=== PATIENT | female | born 1980 | race Caucasian/White ===

== ENCOUNTER 2017-03-23 16:58 | Emergency (ER) | payer OTHER ==
[2017-03-23] MEDS ORDERED: ACETAMINOPHEN TAB 500 MG TAB PO STA (17:37)
[2017-03-23] MEDS ORDERED: RX INFO: IV CONTRAST WAS GIVEN 1 EACH MISC MISCELLANE PRN (17:37)
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
--- NOTE | 2017-03-23 18:58 | XR ---
EXAMINATION TYPE: XR shoulder complete LT, XR clavicle LT DATE OF EXAM: 03/23/2017 6:53 PM CLINICAL HISTORY: pain COMPARISON: NONE TECHNIQUE: Three views of the left shoulder are obtained. 2 views of the left clavicle are also subm itted. FINDINGS: There is no acute fracture/dislocation evident. The acromioclavicular and glenohumeral rudy int spaces appear within normal limits. The visualized ribs are intact and unremarkable. IMPRESSION: 1. There is no acute fracture or dislocation. ICD 10 NO FRACTURE, INITIAL EVALUATION
--- NOTE | 2017-03-23 18:59 | XR ---
EXAMINATION TYPE: XR knee complete bilateral DATE OF EXAM: 03/23/2017 6:53 PM CLINICAL HISTORY: pain TECHNIQUE: Three views of the bilateral knees and bilateral tibia and fibula are obtained. COMPARISON: None. FINDINGS: There is no acute fracture/dislocation. The tri-compartment joint spaces appear narrowed. The overlying soft tissue appears unremarkable. IMPRESSION: There is no acute fracture or dislocation ICD 10 NO FRACTURE, INITIAL EVALUATION
[2017-03-23 19:41] VITALS: BP 118/83; PULSE 80; RESP 16; TEMP 98.5
--- NOTE | 2017-03-24 19:25 | XR ---
EXAMINATION TYPE: XR tibia fibula bilateral DATE OF EXAM: 03/23/2017 6:54 PM COMPARISON: NONE HISTORY: Pain TECHNIQUE: 2 view right tib-fib. Images presented 03/24/2017 for final interpretation. FINDINGS: No acute fractures are evident. Joint spaces are preserved. A plantar calcaneal heel spur i s present. Degenerative changes are at the knee. IMPRESSION: 1. No acute osseous abnormality.
== END 2017-03-23 19:41 | disposition home or self-care (01) ==
LOC: EC 16:58
DX: S81.819A Laceration without foreign body, unspecified lower leg, initial encounter (principal); S80.02XA Contusion of left knee, initial encounter; S80.01XA Contusion of right knee, initial encounter; S30.1XXA Contusion of abdominal wall, initial encounter; S40.019A Contusion of unspecified shoulder, initial encounter; S50.10XA Contusion of unspecified forearm, initial encounter; F17.200 Nicotine dependence, unspecified, uncomplicated; V43.52XA Car driver injured in collision with other type car in traffic accident, initial encounter; Y92.410 Unspecified street and highway as the place of occurrence of the external cause
CPT/HCPCS: 73562; 73590; 73030; 73000; 74177; 99284; 96372 ×2; Q9967

== ENCOUNTER → 2017-04-28 | Outpatient (CLI) | payer OTHER ==
--- NOTE | 2017-04-28 14:43 | MM ---
Reason for exam: screening (asymptomatic). Baseline mammogram. History: Family history of breast cancer in mother at age 38, premenopausal breast cancer in paternal grandmother at age 40, and breast cancer in aunt at age 40. Physical Findings: Nurse did not find any significant physical abnormalities on exam. MG Screening Mammo w CAD Bilateral CC and MLO view(s) were taken. There are scattered fibroglandular densities. There is no discrete abnormality. These results were verbally communicated with the patient and result sheet given to the patient on 04/28/17. ASSESSMENT: Negative, BI-RAD 1 RECOMMENDATION: Routine screening mammogram of both breasts at age 39.
== END | disposition home or self-care (01) ==
LOC: RADMAMWWP 13:00
PROVIDERS: ATTEND Family Medicine
DX: Z12.31 Encounter for screening mammogram for malignant neoplasm of breast (principal)